=== PATIENT | female | born 1985 | race Caucasian/White ===

== ENCOUNTER 2018-12-10 18:00 | Emergency (ER) | payer OTHER ==
[~2018-12-10] VITALS: Ht 172.7 cm; Wt 74.8 kg
--- NOTE | 2018-12-10 18:03 | ED.ADGEN ---
Adult General Chief Complaint Chief Complaint ".. I stepped on a stick and rolled this Rt. ankle.. that was about 2:30.. ( PM), ,, but it is still hurting... I had to wait until my got home to get it checked..."".. I got kids..." HPI HPI Patient is a 32 year old female who presents with above hx and complaints of Rt. ankle injury. Inversion type injury. Patient is able to walk with a limp. No upper leg tenderness. Localizes pain to lateral malleolus of right ankle. Distal neurovascular intact. No recent travel. No history immunosuppression. No Other injury reported. Does have increased pain on inversion of ankle and some edema. Negative foot squeeze. Pain on percussion of lateral malleolus and right ankle. Heel stress is negative Review of Systems Review of Systems Constitutional: Denies fever or chills [] Eyes: Denies change in visual acuity, redness, or eye pain [] HENT: Denies nasal congestion or sore throat [] Respiratory: Denies cough or shortness of breath [] Cardiovascular: No additional information not addressed in HPI [] GI: Denies abdominal pain, nausea, vomiting, bloody stools or diarrhea [] : Denies dysuria or hematuria [] Musculoskeletal: Denies back pain or joint pain []with taking sips no complaints of right ankle injury Integument: Denies rash or skin lesions [] Neurologic: Denies headache, focal weakness or sensory changes [] Endocrine: Denies polyuria or polydipsia [] All other systems were reviewed and found to be within normal limits, except as documented in this note. Family History Family History Noncontributory Current Medications Current Medications See nursing for home meds Allergies Allergies No known drug allergies Physical Exam Physical Exam Constitutional: Well developed, well nourished, moderate acute distress, non- toxic appearance. [] HENT: Normocephalic, atraumatic, bilateral external ears normal, oropharynx moist, no oral exudates, nose normal. [] Eyes: PERRLA, EOMI, conjunctiva normal, no discharge. [] Neck: Normal range of motion, no tenderness, supple, no stridor. [] Cardiovascular:Heart rate regular rhythm, no murmur [] Lungs & Thorax: Bilateral breath sounds clear to auscultation [] Abdomen: Bowel sounds normal, soft, no tenderness, no masses, no pulsatile masses. [] Skin: Warm, dry, no erythema, no rash. [] Back: No tenderness, no CVA tenderness. [] Extremities: No tenderness, no cyanosis, no clubbing, ROM intact, no edema. [] Except findings in right ankle Neurologic: Alert and oriented X 3, normal motor function, normal sensory function, no focal deficits noted. [] Psychologic: Affect normal, judgement normal, mood normal. [] Current Patient Data Vital Signs Vital Signs Date Time Temp Pulse Resp B/P (MAP) Pulse Ox O2 Delivery O2 Flow Rate FiO2 12/10/18 18:43 98.7 88 18 99 Room Air EKG EKG [] Radiology/Procedures Radiology/Procedures My interpretation of right ankle shows[] edema and no obvious fracture. Course & Med Decision Making Course & Med Decision Making Pertinent Labs and Imaging studies reviewed. (See chart for details) Pt. declined crutches. Ice, elevation, splint, Tylenol ibuprofen for pain. May take Vicoprofen up 4 times a day for marked pain. Follow-up primary care. Return if any concerns. Distal neurovascular intact after application of ankle splint. [] Final Impression Final Impression 1. Ankle sprain[] Dragon Disclaimer Dragon Disclaimer This electronic medical record was generated, in whole or in part, using a voice recognition dictation system. Dragon Disclaimer This chart was dictated in whole or in part using Voice Recognition software in a busy, high-work load, and often noisy Emergency Department environment. It may contain unintended and wholly unrecognized errors or omissions. DAVID COLEMAN MD Dec 10, 2018 18:03
[2018-12-10] MEDS ORDERED: HYDR-1179 PO (18:31)
--- NOTE | 2018-12-10 20:09 | RAD ---
Exam: Right ankle 3 views INDICATION: Rolled ankle TECHNIQUE: Frontal, lateral and oblique views of the right ankle Comparisons: None FINDINGS: Mild soft tissue swelling overlying the lateral malleolus. No acute or healed fractures. Joint spaces are well-maintained. Bone mineralization is normal. IMPRESSION: Mild soft tissue swelling overlying the lateral malleolus without underlying fracture identified. Electronically signed by: Tereza Clinton MD (12/10/2018 8:06 PM) [id number]
== END 2018-12-10 19:14 | disposition home or self-care (01) ==
LOC: ER 18:00
DX: S93.401A Sprain of unspecified ligament of right ankle, initial encounter (principal); X50.9XXA Other and unspecified overexertion or strenuous movements or postures, initial encounter; Y93.89 Activity, other specified; Y92.89 Other specified places as the place of occurrence of the external cause; Y99.8 Other external cause status
CPT/HCPCS: 73610; 99284